=== PATIENT | female | born 1950 | race Hispanic/Latino ===

== ENCOUNTER 2018-07-20 19:02 | Inpatient (IN) | payer MEDICARE ==
[2018-07-20] MEDS ORDERED: ATROVENT IH ONE (19:47)
[2018-07-20] MEDS ORDERED: PROVENTIL IH ONE (19:47)
[2018-07-20] MEDS ORDERED: SOLU-Medrol IV ONE (19:47)
--- NOTE | 2018-07-20 19:51 | Emergency Department Report ---
HPI - General Chief Complaint: Dyspnea/Respdistress Time Seen by Provider: 07/20/18 19:38 - HPI HPI: Room 6 The patient is a 67-year-old female presenting with chief complaint of shortness of breath. Patient has a worsening shortness of breath since yesterday. Patient admits to a cough that has been productive. Last week the patient was diagnosed with "double pneumonia" per family member. The patient has been in contact with another family member was diagnosed with influenza. Patient denies pain of any type. Patient is on 3.5 L O2 at home and in the ED is satting approximately 92% on 100% nonrebreather Location: Lungs Duration: [See above] Quality: Shortness of breath Severity: Moderate Modifying factors: [see above] Context: [see above] Mode of transportation: [not driving] ED Past Medical Hx - Past Medical History Hx COPD: Yes (3.5 L nasal cannula home O2) - Surgical History Past Surgical History?: No - Family History Family history: no significant - Social History Smoking Status: Current Every Day Smoker ED Review of Systems ROS: Stated complaint: ALLAN Other details as noted in HPI Eyes: denies: eye pain ENT: denies: throat pain Respiratory: cough, shortness of breath Cardiovascular: denies: chest pain Endocrine: no symptoms reported Gastrointestinal: denies: abdominal pain Genitourinary: denies: dysuria Musculoskeletal: denies: back pain Neurological: denies: headache Physical Exam - Physical Exam Physical Exam: GENERAL: The patient is well-developed well-nourished female lying on stretcher appearing lethargic. [] HEENT: Normocephalic. Atraumatic. Extraocular motions are intact. Patient has moist mucous membranes. NECK: Supple. Trachea midline CHEST/LUNGS: Rhonchi bilaterally. Diminished breath sound. There is no respiratory distress noted. HEART/CARDIOVASCULAR: Regular. There is no tachycardia. There is no gallop rub or murmur. ABDOMEN: Abdomen is soft, nontender. Patient has normal bowel sounds. There is no abdominal distention. SKIN: There is no rash. There is no diaphoresis. NEURO: The patient is awake, alert, and oriented. The patient is cooperative. The patient has normal speech MUSCULOSKELETAL: There is no evidence of acute injury. ED Medical Decision Making - Lab Data Result diagrams: 07/20/18 20:13 - Radiology Data Radiology results: report reviewed (chest x-ray), image reviewed (chest x-ray) interpreted by me: Chest x-ray-right lower lobe pneumonia Findings [facility] [address] [place] [address] XRay Report Signed Patient: BARTOLO SOMMER MR#: [id number] : 1950 Acct:[id number] Age/Sex: 67 / F ADM Date: 07/20/18 Loc: ED Attending Dr: Ordering Physician: ALICIA VANEGAS MD Date of Service: 07/20/18 Procedure(s): XR chest 1V ap Accession Number(s): [id number] cc: ALICIA VANEGAS MD Fluoro Time In Minutes: FINAL REPORT PROCEDURE: XR CHEST 1V AP TECHNIQUE: Chest radiograph anteroposterior view. CPT 01301 HISTORY: Shortness of breath COMPARISON: No p rior studies are available for comparison. FINDINGS: Heart: Cardiac size is upper limit of normal. Mediastinum/Vessels: Normal. Lungs/Pleural space: Lungs are hyperinflated. There is diffuse prominence of interstitial markings. Irregular areas of consolidation are noted in the right lower lung. There is mild blunting of right costophrenic angle. Left pleural space is clear.. Bony thorax: No acute osseous abnormality. Life support devices: None. IMPRESSION: COPD Areas of consolidation in the right lower lung most likely represent pneumonia. Diffuse prominence of interstitial markings may represent interstitial fibrosis and/or interstitial edema. A two view chest study is recommended whenever the patient's condition permits.. Transcribed By: [facility] [place] Dictated By: JYOTSNA PIKE Electronically Authenticated By: JYOTNSA PIKE Signed Date/Time: 07/20/182012 DD/ 13 TD/ TT: 07/20/182013 - Differential Diagnosis pneumonia, influenza, COPD exacerbation Critical care attestation.: If time is entered above; I have spent that time in minutes in the direct care of this critically ill patient, excluding procedure time. ED Disposition Clinical Impression: Shortness of breath, Pneumonia, Leukocytosis, COPD exacerbation Disposition: -09 OP ADMIT IP TO THIS HOSP Is pt being admited?: Yes Does the pt Need Aspirin: No Condition: Fair Instructions: Bacterial Pneumonia (ED), Chronic Obstructive Pulmonary Disease (ED) Time of Disposition: 21:18 (hospitalist paged (Dr. Emily Lugo))
[2018-07-20] MEDS ORDERED: MAGNESIUM SULFATE 2GM/50ML 2 GM/50 ML BAG IV ONE (20:00)
--- NOTE | 2018-07-20 20:13 | XRay Report ---
FINAL REPORT PROCEDURE: XR CHEST 1V AP TECHNIQUE: Chest radiograph anteroposterior view. CPT 29287 HISTORY: Shortness of breath COMPARISON: No prior studies are available for comparison. FINDINGS: Heart: Cardiac size is upper limit of normal. Mediastinum/Vessels: Normal. Lungs/Pleural space: Lungs are hyperinflated. There is diffuse prominence of interstitial markings. I rregular areas of consolidation are noted in the right lower lung. There is mild blunting of right co stophrenic angle. Left pleural space is clear.. Bony thorax: No acute osseous abnormality. Life support devices: None. IMPRESSION: COPD Areas of consolidation in the right lower lung most likely represent pneumonia. Diffuse prominence of interstitial markings may represent interstitial fibrosis and/or interstitial e renate. A two view chest study is recommended whenever the patient's condition permits..
[2018-07-20 20:55] LABS: Hematocrit 46.1 % (30.3-42.9); Hemolysis Index 2; Mean Corpuscular HGB Conc 33 % (30-34); Mean Corpuscular Volume 97 fl (79-97); Platelet Count 154 K/mm3 (140-440); Red Blood Count 4.77 M/mm3 (3.65-5.03); Red Cell Distribution Width 13.5 % (13.2-15.2)
[2018-07-20 21:30] LABS: Band Neutrophils # (Manual) 3.9 K/mm3; Basophils % (Manual) 0 % (0.0-1.8); Eosinophils % (Manual) 0 % (0.0-4.3); Platelet Estimate Consistent w Auto; RBC Morphology Normal; Total Cells Counted 100
[2018-07-20 21:43] LABS: BUN/Creatinine Ratio 60; Blood Urea Nitrogen 18 mg/dL (7-17)
[2018-07-20 21:48] LABS: Calcium 2.8 mg/dL (8.4-10.2)
[2018-07-20] MEDS ORDERED: VANCOMYCIN 1,250 MG in NACL 0.9% 500 ML 500 ML IV ONE (22:00)
[2018-07-20] MEDS: MAXIPIME/NS 2 GM/100 ML 2 GM/100 ML BAG IV SCH (22:00)
--- NOTE | 2018-07-20 23:51 | History and Physical Report ---
History of Present Illness Date of examination: 07/20/18 History of present illness: 67-year-old woman with a history of COPD was brought by her family because she has increased shortness of breath, not relieved with nebulizer treatment. Grandson at bedside state that she was hospitalized recently for possible pneumonia. She is sleeping a lot at home. Review of systems difficult to obtain PAST MEDICAL HISTORY: COPD PAST SURGICAL HISTORY: None SOCIAL HISTORY: Denies alcohol, drugs, smoke 1 pack a week FAMILY HISTORY: Hypertension Medications and Allergies Allergies Allergy/AdvReac Type Severity Reaction Status Date / Time Unable to Assess Allergy Unverified 07/20/18 19:34 Home Medications Medication Instructions Recorded Confirmed Last Taken Type No Known Home Medications [No 07/21/18 07/21/18 Unknown History Reported Home Medications] Active Meds: Active Medications Cefepime HCl (Maxipime/Ns 2 Gm/100 Ml) 2 gm in 100 mls @ 200 mls/hr IV Q8HR TRENT; Protocol Last Admin: 07/20/18 22:00 Dose: 200 mls/hr Documented by: Exam - Physical Exam Narrative exam: General Apperance: The patient lying in bed, breathing comfortable HEENT: Normocephalic, atraumatic. Pupils equally round and reactive to light, EOMI, no sclericterus or JVD or thyromegaly or nodule. , no carotid bruit, mucous membranes moist, no exudate or erythema Heart: S1-S2, regular is rhythm Lungs: Wheezing bilaterally, breathing comfortable Abdomen: Positive bowel sounds, soft, nontender, nondistended, no organomegaly Extremities: No edema cyanosis clubbing Skin: no rash, nodule, warm and dry Neuro: Difficult to assess - Constitutional Vitals: Temp Pulse Resp BP Pulse Ox 98.3 F 104 H 25 H 104/49 98 07/20/18 19:57 07/20/18 22:46 07/20/18 22:46 07/20/18 22:46 07/20/18 22:46 Results - Labs CBC & Chem 7: 07/21/18 04:23 07/21/18 04:23 Labs: Abnormal lab results 07/20/18 07/20/18 07/20/18 Range/Units 20:13 20:13 21:22 WBC 20.7 H (4.5-11.0) K/mm3 Hgb 15.0 H (10.1-14.3) gm/dl Hct 46.1 H (30.3-42.9) % Seg Neuts % (Manual) 74.0 H (40.0-70.0) % Lymphocytes % (Manual) 3.0 L (13.4-35.0) % Seg Neutrophils # Man 15.3 H (1.8-7.7) K/mm3 Lymphocytes # (Manual) 0.6 L (1.2-5.4) K/mm3 POC ABG pH 7.310 L (7.35-7.45) POC ABG pCO2 95.4 H (35-45) POC ABG pO2 59 L (80-105) Potassium 5.5 H (3.6-5.0) mmol/L Chloride 87.2 L (98-107) mmol/L Carbon Dioxide 38 H (22-30) mmol/L BUN 18 H (7-17) mg/dL Creatinine < 0.2 L (0.7-1.2) mg/dL Glucose 115 H (65-100) mg/dL Calcium 2.8 L* (8.4-10.2) mg/dL 07/20/18 Range/Units 22:30 WBC (4.5-11.0) K/mm3 Hgb (10.1-14.3) gm/dl Hct (30.3-42.9) % Seg Neuts % (Manual) (40.0-70.0) % Lymphocytes % (Manual) (13.4-35.0) % Seg Neutrophils # Man (1.8-7.7) K/mm3 Lymphocytes # (Manual) (1.2-5.4) K/mm3 POC ABG pH (7.35-7.45) POC ABG pCO2 82.9 H (35-45) POC ABG pO2 76 L (80-105) Potassium (3.6-5.0) mmol/L Chloride (98-107) mmol/L Carbon Dioxide (22-30) mmol/L BUN (7-17) mg/dL Creatinine (0.7-1.2) mg/dL Glucose (65-100) mg/dL Calcium (8.4-10.2) mg/dL Assessment and Plan Assessment Respiratory Failure, acute COPD exacerbation Pneumonia, community-acquired Plan Admit to medicine Continue BiPAP, start high-dose steroids, breathing treatments Start IV Zosyn, consult pulmonary, monitor ABG DVT prophylaxis
[2018-07-21] MEDS ORDERED: ZOFRAN IV PRN (03:48)
[2018-07-21] MEDS ORDERED: SODIUM CHLORIDE FLUSH SYRINGE 10 ML IV PRN (03:48)
[2018-07-21] MEDS ORDERED: TYLENOL PO PRN (03:48)
[2018-07-21] MEDS ORDERED: SOLU-Medrol IV SCH (03:50)
[2018-07-21] MEDS: DUONEB *Not for PRN Use IH SCH ×4 (04:08→20:17)
[2018-07-21] MEDS ORDERED: SOLU-Medrol ONE (04:47)
[2018-07-21 04:51] LABS: Hematocrit 41.2 % (30.3-42.9); Hemoglobin 13.3 gm/dl (10.1-14.3); Mean Corpuscular HGB Conc 32 % (30-34); Mean Corpuscular Volume 96 fl (79-97); Platelet Count 171 K/mm3 (140-440); Red Cell Distribution Width 14.1 % (13.2-15.2)
[2018-07-21 05:08] LABS: BUN/Creatinine Ratio 58; Blood Urea Nitrogen 23 mg/dL (7-17); Hemolysis Index 20
[2018-07-21] MEDS ORDERED: ZOSYN/NS 3.375GM/50ML 3.375 GM/50 ML BAG IV SCH (06:00)
[2018-07-21 06:14] LABS: Calcium 8.6 mg/dL (8.4-10.2)
[2018-07-21 06:27] LABS: Band Neutrophils # (Manual) 1.2 K/mm3; Basophils % (Manual) 0 % (0.0-1.8); Eosinophils % (Manual) 0 % (0.0-4.3); Total Cells Counted 100
[2018-07-21 06:29] LABS: Anisocytosis 1+; Platelet Estimate Cons
[2018-07-21] MEDS: MAXIPIME/NS 2 GM/100 ML 2 GM/100 ML BAG IV SCH (06:32)
[2018-07-21] MEDS ORDERED: LOVENOX SUB-Q SCH (10:00)
[2018-07-21] MEDS: LOVENOX SUB-Q SCH (10:03)
[2018-07-21] MEDS: SODIUM CHLORIDE FLUSH SYRINGE 10 ML IV SCH ×2 (10:03→22:45)
--- NOTE | 2018-07-21 13:45 | Progress Note ---
Assessment and Plan Assessment and plan: COPD exacerbation, CO2 narcosis, acute on chronic respiratory failure - Patient was admitted to the floor on IV Solu-Medrol, IV antibiotic, nebulizer, DuoNeb's - Patient CO2 was 76 now 71 - Pulmonary consulted Right lower lobe pneumonia - Continue antibiotic DVT prophylaxis - Lovenox Disposition - Continue inpatient care History Interval history: Patient was seen and evaluated this morning, patient was alert and oriented, she was on BiPAP. Hospitalist Physical - Physical exam Narrative exam: Patient was on BiPAP The patient appeared well nourished and normally developed. Vital signs as documented. Head exam is unremarkable. No scleral icterus . Neck is without jugular venous distension, thyromegaly, or carotid bruits. Lungs decreased air entry on the bibasilar area, scattered wheezes. Cardiac exam reveals regular rate and Rhythm. Abdominal exam reveals normal bowel sounds. Extremities are nonedematous and both femoral and pedal pulses are normal. 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 No focal weakness. - Constitutional Vitals: Temp Pulse Resp BP Pulse Ox 98.3 F 103 H 24 98/56 95 07/21/18 05:55 07/21/18 08:03 07/21/18 08:03 07/21/18 08:03 07/21/18 12:19 Results - Labs CBC & Chem 7: 07/21/18 04:23 07/21/18 04:23 Labs: Laboratory Last Values WBC 19.2 K/mm3 (4.5-11.0) H 07/21/18 04:23 RBC 4.30 M/mm3 (3.65-5.03) 07/21/18 04:23 Hgb 13.3 gm/dl (10.1-14.3) 07/21/18 04:23 Hct 41.2 % (30.3-42.9) 07/21/18 04:23 MCV 96 fl (79-97) 07/21/18 04:23 MCH 31 pg (28-32) 07/21/18 04:23 MCHC 32 % (30-34) 07/21/18 04:23 RDW 14.1 % (13.2-15.2) 07/21/18 04:23 Plt Count 171 K/mm3 (140-440) 07/21/18 04:23 Add Manual Diff Complete 07/21/18 04:23 Total Counted 100 01/04/19 04:23 Seg Neutrophils % Car Body Inspector 07/21/18 04:23 Seg Neuts % (Manual) 86.0 % (40.0-70.0) H 07/21/18 04:23 Band Neutrophils % 6.0 % 07/21/18 04:23 Lymphocytes % (Manual) 6.0 % (13.4-35.0) L 07/21/18 04:23 Reactive Lymphs % (Man) 0 % 07/21/18 04:23 Monocytes % (Manual) 2.0 % (0.0-7.3) 07/21/18 04:23 Eosinophils % (Manual) 0 % (0.0-4.3) 07/21/18 04:23 Basophils % (Manual) 0 % (0.0-1.8) 07/21/18 04:23 Metamyelocytes % 0 % 07/21/18 04:23 Myelocytes % 0 % 07/21/18 04:23 Promyelocytes % 0 % 07/21/18 04:23 Blast Cells % 0 % 07/21/18 04:23 Nucleated RBC % Not Reportable 07/21/18 04:23 Seg Neutrophils # Man 16.5 K/mm3 (1.8-7.7) H 07/21/18 04:23 Band Neutrophils # 1.2 K/mm3 07/21/18 04:23 Lymphocytes # (Manual) 1.2 K/mm3 (1.2-5.4) 07/21/18 04:23 Abs React Lymphs (Man) 0.0 K/mm3 07/21/18 04:23 Monocytes # (Manual) 0.4 K/mm3 (0.0-0.8) 07/21/18 04:23 Eosinophils # (Manual) 0.0 K/mm3 (0.0-0.4) 07/21/18 04:23 Basophils # (Manual) 0.0 K/mm3 (0.0-0.1) 07/21/18 04:23 Metamyelocytes # 0.0 K/mm3 07/21/18 04:23 Myelocytes # 0.0 K/mm3 07/21/18 04:23 Promyelocytes # 0.0 K/mm3 07/21/18 04:23 Blast Cells # 0.0 K/mm3 07/21/18 04:23 WBC Morphology Not Reportable 07/21/18 04:23 Hypersegmented Neuts Not Reportable 07/21/18 04:23 Hyposegmented Neuts Not Reportable 07/21/18 04:23 Hypogranular Neuts Not Reportable 07/21/18 04:23 Smudge Cells Not Reportable 07/21/18 04:23 Toxic Granulation Not Reportable 07/21/18 04:23 Toxic Vacuolation Not Reportable 07/21/18 04:23 Dohle Bodies Not Reportable 07/21/18 04:23 Pelger-Huet Anomaly Not Reportable 07/21/18 04:23 Irasema Rods Not Reportable 07/21/18 04:23 Platelet Estimate Cons 07/21/18 04:23 Clumped Platelets Not Reportable 07/21/18 04:23 Plt Clumps, EDTA Not Reportable 07/21/18 04:23 Large Platelets Not Reportable 07/21/18 04:23 Giant Platelets Not Reportable 07/21/18 04:23 Platelet Satelliting Not Reportable 07/21/18 04:23 Plt Morphology Comment Not Reportable 07/21/18 04:23 RBC Morphology Not Reportable 07/21/18 04:23 Dimorphic RBCs Not Reportable 07/21/18 04:23 Polychromasia Not Reportable 07/21/18 04:23 Hypochromasia Not Reportable 07/21/18 04:23 Poikilocytosis Not Reportable 07/21/18 04:23 Anisocytosis 1+ 07/21/18 04:23 Microcytosis Not Reportable 07/21/18 04:23 Macrocytosis Not Reportable 07/21/18 04:23 Spherocytes Not Reportable 07/21/18 04:23 Pappenheimer Bodies Not Reportable 07/21/18 04:23 Sickle Cells Not Reportable 07/21/18 04:23 Target Cells Not Reportable 07/21/18 04:23 Tear Drop Cells Not Reportable 07/21/18 04:23 Ovalocytes Not Reportable 07/21/18 04:23 Helmet Cells Not Reportable 07/21/18 04:23 [place] Bodies Not Reportable 07/21/18 04:23 [place] Rings Not Reportable 07/21/18 04:23 Neda Cells Not Reportable 07/21/18 04:23 Bite Cells Not Reportable 07/21/18 04:23 Crenated Cell Not Reportable 07/21/18 04:23 Elliptocytes Not Reportable 07/21/18 04:23 Acanthocytes (Spur) Not Reportable 07/21/18 04:23 Rouleaux Not Reportable 07/21/18 04:23 Hemoglobin C Crystals Not Reportable 07/21/18 04:23 Schistocytes Not Reportable 07/21/18 04:23 Malaria parasites Not Reportable 07/21/18 04:23 Gui Bodies Not Reportable 07/21/18 04:23 Hem Pathologist Commnt No 07/21/18 04:23 POC ABG pH 7.350 (7.35-7.45) 07/21/18 07:46 POC ABG pCO2 78.9 (35-45) H 07/21/18 07:46 POC ABG pO2 71 (80-105) L 07/21/18 07:46 POC ABG HCO3 43.6 07/21/18 07:46 POC ABG Total CO2 46 07/21/18 07:46 POC ABG O2 Sat 92 07/21/18 07:46 POC ABG Base Excess 18 07/21/18 07:46 FiO2 50 % 07/21/18 07:46 Sodium 141 mmol/L (137-145) 07/21/18 04:23 Potassium 4.6 mmol/L (3.6-5.0) 07/21/18 04:23 Chloride 89.8 mmol/L (98-107) L 07/21/18 04:23 Carbon Dioxide 40 mmol/L (22-30) H 07/21/18 04:23 Anion Gap 14 mmol/L 07/21/18 04:23 BUN 23 mg/dL (7-17) H 07/21/18 04:23 Creatinine 0.4 mg/dL (0.7-1.2) L D 07/21/18 04:23 Estimated GFR > 60 ml/min 07/21/18 04:23 BUN/Creatinine Ratio 58 % 07/21/18 04:23 Glucose 118 mg/dL (65-100) H 07/21/18 04:23 Lactic Acid 1.20 mmol/L (0.7-2.0) 07/20/18 20:13 Calcium 8.6 mg/dL (8.4-10.2) D 07/21/18 04:23 Influenza A (Rapid) Negative (Negative) 07/20/18 20:30 Influenza B (Rapid) Negative (Negative) 07/20/18 20:30
[2018-07-21] MEDS: BROVANA NEBU IH SCH ×2 (14:05→20:17)
[2018-07-21] MEDS: PULMICORT IH SCH ×2 (14:05→20:17)
--- NOTE | 2018-07-21 14:19 | Consultation ---
History of Present Illness Consult date: 07/21/18 Requesting physician: MAGDA BOATENG Reason for consult: COPD, hypoxemia History of present illness: 67 y/o female admitted for COPD exacerbation. Medications and Allergies Allergies Allergy/AdvReac Type Severity Reaction Status Date / Time Penicillins Allergy Swelling Verified 08/04/18 21:42 mushroom AdvReac Anaphylaxis Verified 07/22/18 06:21 Home Medications Medication Instructions Recorded Confirmed Last Taken Type Arformoterol Nebu [Brovana Nebu] 15 mcg IH Q12HRT #60 ml 07/23/18 Unknown Rx Budesonide [Pulmicort Respules] 0.5 mg IH Q12HRT #30 nebu 07/23/18 Unknown Rx Ipratropium/Albuterol Sulfate 1 ampul IH Q6HRT #30 ampul.neb 07/23/18 Unknown Rx [DUONEB *Not for PRN Use*] Prednisone [predniSONE 10 mg 10 mg PO .TAPER #1 tab.ds.pk 07/23/18 Unknown Rx (6-Day Pack, 21 Tabs)] cephALEXin [Keflex] 500 mg PO Q8HR #15 cap 07/23/18 Unknown Rx ALBUTEROL Inhaler (OR & NICU) 1 puff IH Q6H #1 inha 08/04/18 Unknown Rx [ProAir HFA Inhaler] ALBUTEROL NEB's [Proventil 0.083% 2.5 mg IH TID PRN #1 neb 08/04/18 Unknown Rx NEBS] Diclofenac Sodium [Voltaren] 100 gm TP Q6H #1 gel..gram. 08/04/18 Unknown Rx predniSONE [Deltasone] 20 mg PO BID #10 tab 08/04/18 Unknown Rx Active Meds: Active Medications Acetaminophen (Tylenol) 650 mg PO Q4H PRN PRN Reason: Pain MILD(1-3)/Fever >100.5/FOX Albuterol/Ipratropium (Duoneb *Not For Prn Use*) 1 ampul IH Q6HRT ON LICENSE OF [facility] Last Admin: 07/21/18 14:05 Dose: 1 ampul Documented by: Arformoterol Tartrate (Brovana Nebu) 15 mcg IH Q12HRT ON LICENSE OF [facility] Last Admin: 07/21/18 14:05 Dose: 15 mcg Documented by: Budesonide (Pulmicort) 0.5 mg IH Q12HRT ON LICENSE OF [facility] Last Admin: 07/21/18 14:05 Dose: 0.5 mg Documented by: Enoxaparin Sodium (Lovenox) 40 mg SUB-Q QDAY@1000 ON LICENSE OF [facility] Last Admin: 07/21/18 10:03 Dose: 40 mg Documented by: Piperacillin Sod/Tazobactam Sod (Zosyn/Ns 4.5gm/100ml) 4.5 gm in 100 mls @ 200 mls/hr IV Q8HR ON LICENSE OF [facility] Methylprednisolone Sodium Succinate (Solu-Medrol) 60 mg IV Q6HR ON LICENSE OF [facility] Ondansetron HCl (Zofran) 4 mg IV Q8H PRN PRN Reason: Nausea And Vomiting Sodium Chloride (Sodium Chloride Flush Syringe 10 Ml) 10 ml IV BID ON LICENSE OF [facility] Last Admin: 07/21/18 10:03 Dose: 10 ml Documented by: Sodium Chloride (Sodium Chloride Flush Syringe 10 Ml) 10 ml IV PRN PRN PRN Reason: LINE FLUSH Physical Examination Vital signs: Vital Signs Pulse Resp Pulse Ox 112 H 26 H 87 07/20/18 19:54 07/20/18 19:54 07/20/18 19:54 Results - Laboratory Findings CBC and BMP: 07/22/18 04:19 07/22/18 16:27 ABG POC ABG pH 7.350 (7.35-7.45) 07/21/18 07:46 POC ABG pCO2 78.9 (35-45) H 07/21/18 07:46 POC ABG pO2 71 (80-105) L 07/21/18 07:46 POC ABG HCO3 43.6 07/21/18 07:46 POC ABG Total CO2 46 07/21/18 07:46 POC ABG O2 Sat 92 07/21/18 07:46 Abnormal lab findings: Abnormal Labs 07/20/18 07/20/18 07/20/18 20:13 20:13 21:22 WBC 20.7 H Hgb 15.0 H Hct 46.1 H Seg Neuts % (Manual) 74.0 H Lymphocytes % (Manual) 3.0 L Seg Neutrophils # Man 15.3 H Lymphocytes # (Manual) 0.6 L POC ABG pH 7.310 L POC ABG pCO2 95.4 H POC ABG pO2 59 L Potassium 5.5 H Chloride 87.2 L Carbon Dioxide 38 H BUN 18 H Creatinine < 0.2 L Glucose 115 H Calcium 2.8 L* 07/20/18 07/21/18 07/21/18 22:30 04:23 04:23 WBC 19.2 H Hgb Hct Seg Neuts % (Manual) 86.0 H Lymphocytes % (Manual) 6.0 L Seg Neutrophils # Man 16.5 H Lymphocytes # (Manual) POC ABG pH POC ABG pCO2 82.9 H POC ABG pO2 76 L Potassium Chloride 89.8 L Carbon Dioxide 40 H BUN 23 H Creatinine 0.4 L D Glucose 118 H Calcium 07/21/18 07:46 WBC Hgb Hct Seg Neuts % (Manual) Lymphocytes % (Manual) Seg Neutrophils # Man Lymphocytes # (Manual) POC ABG pH POC ABG pCO2 78.9 H POC ABG pO2 71 L Potassium Chloride Carbon Dioxide BUN Creatinine Glucose Calcium Assessment and Plan 67 y/o female with copd exacerbation thought secondary to pneumonia. 1. Steroids. 2. Abx therapy 3. Supplemental O2 4. Repeat ABG CCT 31 minutes
[2018-07-21] MEDS: SOLU-Medrol IV SCH ×3 (14:59→23:10)
[2018-07-21] MEDS: ZOSYN/NS 4.5GM/100ML 4.5 GM/100 ML VIAL IV SCH ×2 (15:02→22:45)
[2018-07-22] MEDS: DUONEB *Not for PRN Use IH SCH ×4 (02:15→21:10)
[2018-07-22 05:07] LABS: Hematocrit 36.8 % (30.3-42.9); Mean Corpuscular HGB Conc 33 % (30-34); Mean Corpuscular Volume 96 fl (79-97); Platelet Count 173 K/mm3 (140-440); Red Blood Count 3.84 M/mm3 (3.65-5.03)
[2018-07-22] MEDS: ZOSYN/NS 4.5GM/100ML 4.5 GM/100 ML VIAL IV SCH ×3 (05:15→21:48)
[2018-07-22] MEDS: SOLU-Medrol IV SCH ×4 (05:16→23:55)
[2018-07-22 05:21] LABS: BUN/Creatinine Ratio 63; Blood Urea Nitrogen 25 mg/dL (7-17); Calcium 8.7 mg/dL (8.4-10.2); Hemolysis Index 13
[2018-07-22 06:08] LABS: Basophils % (Manual) 0 % (0.0-1.8); Eosinophils % (Manual) 0 % (0.0-4.3); Monocytes % (Manual) 0 % (0.0-7.3); Total Cells Counted 100
[2018-07-22 06:09] LABS: Anisocytosis 1+; Platelet Estimate Consistent w Auto
[2018-07-22] MEDS: BROVANA NEBU IH SCH ×2 (08:00→21:07)
[2018-07-22] MEDS: PULMICORT IH SCH ×2 (08:00→21:07)
[2018-07-22] MEDS: LOVENOX SUB-Q SCH (09:15)
[2018-07-22] MEDS: SODIUM CHLORIDE FLUSH SYRINGE 10 ML IV SCH ×2 (09:15→21:48)
--- NOTE | 2018-07-22 14:50 | Progress Note ---
Assessment and Plan 67 y/o female with copd exacerbation thought secondary to pneumonia. 1. Continue High dose steroids 2. Abx per primary team 3. Continue pulmicort and brovana 4. Would transfer to floor, continue night time bipap therapy. If patient not on PPV at night at home, should qualify for trilogy from hospital prior to discharge. Subjective Date of service: 07/22/18 Interval history: No acute events. Wore bipap therapy last night on nasal cannula now. Stable. Mild tachycardia. Objective Vital Signs - 12hr 07/22/18 07/22/18 07/22/18 03:00 03:20 03:40 Temperature Pulse Rate 86 90 82 Pulse Rate [ Anterior Bilateral Throughout] Pulse Rate [ Bilateral Throughout] Pulse Rate [ From Monitor] Respiratory 17 16 24 Rate Respiratory Rate [Anterior Bilateral Throughout] Respiratory Rate [Bilateral Throughout] Blood Pressure 100/54 101/53 100/54 O2 Sat by Pulse 96 98 96 Oximetry 07/22/18 07/22/18 07/22/18 04:00 04:20 04:40 Temperature 98.5 F Pulse Rate 82 82 78 Pulse Rate [ Anterior Bilateral Throughout] Pulse Rate [ Bilateral Throughout] Pulse Rate [ 79 From Monitor] Respiratory 24 24 18 Rate Respiratory Rate [Anterior Bilateral Throughout] Respiratory Rate [Bilateral Throughout] Blood Pressure 86/42 90/47 90/47 O2 Sat by Pulse 96 95 96 Oximetry 07/22/18 07/22/18 07/22/18 05:00 05:20 05:40 Temperature Pulse Rate 86 80 88 Pulse Rate [ Anterior Bilateral Throughout] Pulse Rate [ Bilateral Throughout] Pulse Rate [ From Monitor] Respiratory 20 16 20 Rate Respiratory Rate [Anterior Bilateral Throughout] Respiratory Rate [Bilateral Throughout] Blood Pressure 98/52 90/47 90/47 O2 Sat by Pulse 98 99 95 Oximetry 07/22/18 07/22/18 07/22/18 06:00 06:20 06:40 Temperature Pulse Rate 91 H 93 H 98 H Pulse Rate [ Anterior Bilateral Throughout] Pulse Rate [ Bilateral Throughout] Pulse Rate [ From Monitor] Respiratory 24 18 16 Rate Respiratory Rate [Anterior Bilateral Throughout] Respiratory Rate [Bilateral Throughout] Blood Pressure 103/55 103/55 103/55 O2 Sat by Pulse 96 94 90 Oximetry 07/22/18 07/22/18 07/22/18 07:00 07:20 07:40 Temperature Pulse Rate 97 H 95 H 92 H Pulse Rate [ Anterior Bilateral Throughout] Pulse Rate [ Bilateral Throughout] Pulse Rate [ From Monitor] Respiratory 21 18 24 Rate Respiratory Rate [Anterior Bilateral Throughout] Respiratory Rate [Bilateral Throughout] Blood Pressure 101/55 101/55 101/55 O2 Sat by Pulse 93 94 94 Oximetry 07/22/18 07/22/18 07/22/18 08:00 08:10 08:20 Temperature 97.6 F Pulse Rate 93 H 92 H Pulse Rate [ Anterior Bilateral Throughout] Pulse Rate [ 97 H 97 H Bilateral Throughout] Pulse Rate [ 79 From Monitor] Respiratory 21 18 Rate Respiratory Rate [Anterior Bilateral Throughout] Respiratory 18 18 Rate [Bilateral Throughout] Blood Pressure 108/63 108/63 O2 Sat by Pulse 96 98 Oximetry 07/22/18 07/22/18 07/22/18 08:28 08:43 09:00 Temperature Pulse Rate 100 H 109 H Pulse Rate [ Anterior Bilateral Throughout] Pulse Rate [ Bilateral Throughout] Pulse Rate [ From Monitor] Respiratory 15 Rate Respiratory Rate [Anterior Bilateral Throughout] Respiratory Rate [Bilateral Throughout] Blood Pressure 108/63 114/63 O2 Sat by Pulse 97 89 84 Oximetry 07/22/18 07/22/18 07/22/18 09:20 09:42 10:00 Temperature Pulse Rate 105 H 105 H 102 H Pulse Rate [ Anterior Bilateral Throughout] Pulse Rate [ Bilateral Throughout] Pulse Rate [ From Monitor] Respiratory 19 29 H 25 H Rate Respiratory Rate [Anterior Bilateral Throughout] Respiratory Rate [Bilateral Throughout] Blood Pressure 108/63 108/63 114/63 O2 Sat by Pulse 92 85 91 Oximetry 07/22/18 07/22/18 07/22/18 10:20 10:40 11:00 Temperature Pulse Rate 106 H 105 H 104 H Pulse Rate [ Anterior Bilateral Throughout] Pulse Rate [ Bilateral Throughout] Pulse Rate [ From Monitor] Respiratory 23 27 H 20 Rate Respiratory Rate [Anterior Bilateral Throughout] Respiratory Rate [Bilateral Throughout] Blood Pressure 114/63 114/63 105/54 O2 Sat by Pulse 90 89 89 Oximetry 07/22/18 07/22/18 07/22/18 11:20 11:40 12:00 Temperature 98.4 F Pulse Rate 96 H 100 H 102 H Pulse Rate [ Anterior Bilateral Throughout] Pulse Rate [ Bilateral Throughout] Pulse Rate [ 79 From Monitor] Respiratory 26 H 27 H 21 Rate Respiratory Rate [Anterior Bilateral Throughout] Respiratory Rate [Bilateral Throughout] Blood Pressure 96/51 96/51 106/57 O2 Sat by Pulse 90 93 91 Oximetry 07/22/18 07/22/18 07/22/18 12:20 13:23 13:33 Temperature Pulse Rate 103 H Pulse Rate [ 104 H 103 H Anterior Bilateral Throughout] Pulse Rate [ Bilateral Throughout] Pulse Rate [ From Monitor] Respiratory 30 H Rate Respiratory 18 20 Rate [Anterior Bilateral Throughout] Respiratory Rate [Bilateral Throughout] Blood Pressure 106/57 O2 Sat by Pulse 90 Oximetry Constitutional: no acute distress, alert Eyes: non-icteric Ascultation: Bilateral: diminished breath sounds, wheezes CBC and BMP: 07/22/18 04:19 07/22/18 04:19 ABG, PT/INR, D-dimer: ABG POC ABG pH 7.350 (7.35-7.45) 07/21/18 07:46 POC ABG pCO2 78.9 (35-45) H 07/21/18 07:46 POC ABG pO2 71 (80-105) L 07/21/18 07:46 POC ABG HCO3 43.6 07/21/18 07:46 POC ABG Total CO2 46 07/21/18 07:46 POC ABG O2 Sat 92 07/21/18 07:46 Abnormal lab findings: Abnormal Labs 07/20/18 07/20/18 07/20/18 20:13 20:13 21:22 WBC 20.7 H Hgb 15.0 H Hct 46.1 H Seg Neuts % (Manual) 74.0 H Lymphocytes % (Manual) 3.0 L Seg Neutrophils # Man 15.3 H Lymphocytes # (Manual) 0.6 L POC ABG pH 7.310 L POC ABG pCO2 95.4 H POC ABG pO2 59 L Potassium 5.5 H Chloride 87.2 L Carbon Dioxide 38 H BUN 18 H Creatinine < 0.2 L Glucose 115 H Calcium 2.8 L* 07/20/18 07/21/18 07/21/18 22:30 04:23 04:23 WBC 19.2 H Hgb Hct Seg Neuts % (Manual) 86.0 H Lymphocytes % (Manual) 6.0 L Seg Neutrophils # Man 16.5 H Lymphocytes # (Manual) POC ABG pH POC ABG pCO2 82.9 H POC ABG pO2 76 L Potassium Chloride 89.8 L Carbon Dioxide 40 H BUN 23 H Creatinine 0.4 L D Glucose 118 H Calcium 07/21/18 07/22/18 07/22/18 07:46 04:19 04:19 WBC 11.1 H Hgb Hct Seg Neuts % (Manual) 88.0 H Lymphocytes % (Manual) 3.0 L Seg Neutrophils # Man 9.8 H Lymphocytes # (Manual) 0.3 L POC ABG pH POC ABG pCO2 78.9 H POC ABG pO2 71 L Potassium Chloride 91.5 L Carbon Dioxide 44 H* BUN 25 H Creatinine 0.4 L Glucose 147 H Calcium
--- NOTE | 2018-07-22 15:33 | Progress Note ---
Assessment and Plan Assessment and plan: COPD exacerbation, CO2 narcosis, acute on chronic respiratory failure - Patient was admitted to the floor on IV Solu-Medrol, IV antibiotic, nebulizer, DuoNeb's - Patient CO2 was 76 now 71 - Pulmonary consulted and recommend triology machine at discharge if she doesn't have one Right lower lobe pneumonia - Continue antibiotic DVT prophylaxis - Lovenox Disposition - Continue inpatient care History Interval history: Patient was seen and evaluated this morning, patient was alert and oriented, she was on 5 litres of oxygen. Hospitalist Physical - Physical exam Narrative exam: Patient was on BiPAP The patient appeared well nourished and normally developed. Vital signs as documented. Head exam is unremarkable. No scleral icterus . Neck is without jugular venous distension, thyromegaly, or carotid bruits. Lungs decreased air entry on the bibasilar area, scattered wheezes. Cardiac exam reveals regular rate and Rhythm. Abdominal exam reveals normal bowel sounds. Extremities are nonedematous and both femoral and pedal pulses are normal. TRANSPORT MEDIC: Alert and oriented 3. No focal weakness. - Constitutional Vitals: Temp Pulse Resp BP Pulse Ox 98.4 F 103 H 20 106/57 90 07/22/18 12:00 07/22/18 13:33 07/22/18 13:33 07/22/18 12:20 07/22/18 12:20 Results - Labs CBC & Chem 7: 07/22/18 04:19 07/22/18 04:19 Labs: Laboratory Last Values WBC 11.1 K/mm3 (4.5-11.0) H 07/22/18 04:19 RBC 3.84 M/mm3 (3.65-5.03) 07/22/18 04:19 Hgb 12.0 gm/dl (10.1-14.3) 07/22/18 04:19 Hct 36.8 % (30.3-42.9) 07/22/18 04:19 MCV 96 fl (79-97) 07/22/18 04:19 MCH 31 pg (28-32) 07/22/18 04:19 MCHC 33 % (30-34) 07/22/18 04:19 RDW 14.0 % (13.2-15.2) 07/22/18 04:19 Plt Count 173 K/mm3 (140-440) 07/22/18 04:19 Add Manual Diff Complete 07/22/18 04:19 Total Counted 100 07/22/18 04:19 Seg Neutrophils % Media Production Manager 07/22/18 04:19 Seg Neuts % (Manual) 88.0 % (40.0-70.0) H 07/22/18 04:19 Band Neutrophils % 9.0 % 07/22/18 04:19 Lymphocytes % (Manual) 3.0 % (13.4-35.0) L 07/22/18 04:19 Reactive Lymphs % (Man) 0 % 07/22/18 04:19 Monocytes % (Manual) 0 % (0.0-7.3) 07/22/18 04:19 Eosinophils % (Manual) 0 % (0.0-4.3) 07/22/18 04:19 Basophils % (Manual) 0 % (0.0-1.8) 07/22/18 04:19 Metamyelocytes % 0 % 07/22/18 04:19 Myelocytes % 0 % 07/22/18 04:19 Promyelocytes % 0 % 07/22/18 04:19 Blast Cells % 0 % 07/22/18 04:19 Nucleated RBC % Not Reportable 07/22/18 04:19 Seg Neutrophils # Man 9.8 K/mm3 (1.8-7.7) H 07/22/18 04:19 Band Neutrophils # 1.0 K/mm3 07/22/18 04:19 Lymphocytes # (Manual) 0.3 K/mm3 (1.2-5.4) L 07/22/18 04:19 Abs React Lymphs (Man) 0.0 K/mm3 07/22/18 04:19 Monocytes # (Manual) 0.0 K/mm3 (0.0-0.8) 07/22/18 04:19 Eosinophils # (Manual) 0.0 K/mm3 (0.0-0.4) 07/22/18 04:19 Basophils # (Manual) 0.0 K/mm3 (0.0-0.1) 07/22/18 04:19 Metamyelocytes # 0.0 K/mm3 07/22/18 04:19 Myelocytes # 0.0 K/mm3 07/22/18 04:19 Promyelocytes # 0.0 K/mm3 07/22/18 04:19 Blast Cells # 0.0 K/mm3 07/22/18 04:19 WBC Morphology Not Reportable 07/22/18 04:19 Hypersegmented Neuts Not Reportable 07/22/18 04:19 Hyposegmented Neuts Not Reportable 07/22/18 04:19 Hypogranular Neuts Not Reportable 07/22/18 04:19 Smudge Cells Not Reportable 07/22/18 04:19 Toxic Granulation Not Reportable 07/22/18 04:19 Toxic Vacuolation Not Reportable 07/22/18 04:19 Dohle Bodies Not Reportable 07/22/18 04:19 Pelger-Huet Anomaly Not Reportable 07/22/18 04:19 Irasema Rods Not Reportable 07/22/18 04:19 Platelet Estimate Consistent w auto 07/22/18 04:19 Clumped Platelets Not Reportable 07/22/18 04:19 Plt Clumps, EDTA Not Reportable 07/22/18 04:19 Large Platelets Not Reportable 07/22/18 04:19 Giant Platelets Not Reportable 07/22/18 04:19 Platelet Satelliting Not Reportable 07/22/18 04:19 Plt Morphology Comment Not Reportable 07/22/18 04:19 RBC Morphology Not Reportable 07/22/18 04:19 Dimorphic RBCs Not Reportable 07/22/18 04:19 Polychromasia Not Reportable 07/22/18 04:19 Hypochromasia Not Reportable 07/22/18 04:19 Poikilocytosis Not Reportable 07/22/18 04:19 Anisocytosis 1+ 07/22/18 04:19 Microcytosis Not Reportable 07/22/18 04:19 Macrocytosis Not Reportable 07/22/18 04:19 Spherocytes Not Reportable 07/22/18 04:19 Pappenheimer Bodies Not Reportable 07/22/18 04:19 Sickle Cells Not Reportable 07/22/18 04:19 Target Cells Not Reportable 07/22/18 04:19 Tear Drop Cells Not Reportable 07/22/18 04:19 Ovalocytes Not Reportable 07/22/18 04:19 Helmet Cells Not Reportable 07/22/18 04:19 Guzmán-Burwell Bodies Not Reportable 07/22/18 04:19 Thicket Rings Not Reportable 07/22/18 04:19 Neda Cells Not Reportable 07/22/18 04:19 Bite Cells Not Reportable 07/22/18 04:19 Crenated Cell Not Reportable 07/22/18 04:19 Elliptocytes Not Reportable 07/22/18 04:19 Acanthocytes (Spur) Not Reportable 07/22/18 04:19 Rouleaux Not Reportable 07/22/18 04:19 Hemoglobin C Crystals Not Reportable 07/22/18 04:19 Schistocytes Not Reportable 07/22/18 04:19 Malaria parasites Not Reportable 07/22/18 04:19 Gui Bodies Not Reportable 07/22/18 04:19 Hem Pathologist Commnt No 07/22/18 04:19 POC ABG pH 7.350 (7.35-7.45) 07/21/18 07:46 POC ABG pCO2 78.9 (35-45) H 07/21/18 07:46 POC ABG pO2 71 (80-105) L 07/21/18 07:46 POC ABG HCO3 43.6 07/21/18 07:46 POC ABG Total CO2 46 07/21/18 07:46 POC ABG O2 Sat 92 07/21/18 07:46 POC ABG Base Excess 18 07/21/18 07:46 FiO2 50 % 07/21/18 07:46 Sodium 141 mmol/L (137-145) 07/22/18 04:19 Potassium 4.0 mmol/L (3.6-5.0) 07/22/18 04:19 Chloride 91.5 mmol/L (98-107) L 07/22/18 04:19 Carbon Dioxide 44 mmol/L (22-30) H* 07/22/18 04:19 Anion Gap 10 mmol/L 07/22/18 04:19 BUN 25 mg/dL (7-17) H 07/22/18 04:19 Creatinine 0.4 mg/dL (0.7-1.2) L 07/22/18 04:19 Estimated GFR > 60 ml/min 07/22/18 04:19 BUN/Creatinine Ratio 63 % 07/22/18 04:19 Glucose 147 mg/dL (65-100) H 07/22/18 04:19 Lactic Acid 1.20 mmol/L (0.7-2.0) 07/20/18 20:13 Calcium 8.7 mg/dL (8.4-10.2) 07/22/18 04:19 Influenza A (Rapid) Negative (Negative) 07/20/18 20:30 Influenza B (Rapid) Negative (Negative) 07/20/18 20:30
[2018-07-22 16:55] LABS: BUN/Creatinine Ratio 38; Blood Urea Nitrogen 19 mg/dL (7-17); Calcium 8.5 mg/dL (8.4-10.2); Hemolysis Index 19
[2018-07-23] MEDS: DUONEB *Not for PRN Use IH SCH ×3 (02:10→14:07)
[2018-07-23] MEDS: SOLU-Medrol IV SCH ×3 (05:40→17:45)
[2018-07-23] MEDS: ZOSYN/NS 4.5GM/100ML 4.5 GM/100 ML VIAL IV SCH ×2 (05:41→14:30)
[2018-07-23 06:23] VITALS: BP 104/58
[2018-07-23] MEDS: PULMICORT IH SCH (08:01)
[2018-07-23] MEDS: BROVANA NEBU IH SCH (09:48)
[2018-07-23] MEDS: LOVENOX SUB-Q SCH (10:45)
[2018-07-23] MEDS: SODIUM CHLORIDE FLUSH SYRINGE 10 ML IV SCH (10:56)
--- NOTE | 2018-07-23 10:59 | Discharge Summary ---
Providers - Providers Date of Admission: 07/20/18 23:51 Attending physician: MAGDA BOATENG MD 07/21/18 06:20 Consult to Physician [CONS] Routine Comment: Consulting Provider: ANALI MORGAN Physician Instructions: Reason For Exam: copd Primary care physician: ELECTRONIC FUNDS TRANSFER COORDINATOR Hospitalization Reason for admission: COPD exacerbation Condition: Stable Pertinent studies: CXR Areas of consolidation in the right lower lung most likely represent pneumonia. Diffuse prominence of interstitial markings may represent interstitial fibrosis and/or interstitial edema. Hospital course: H/P on admission 67-year-old woman with a history of COPD was brought by her family because she has increased shortness of breath, not relieved with nebulizer treatment. Grandson at bedside state that she was hospitalized recently for possible pneumonia. She is sleeping a lot at home. Review of systems difficult to obtain. Patient was admitted for the management of COPD exacerbation and RLLP. patient was appropriately treated and resolved. patient was at base line at the time of discharge. Pulmonary consult appreciated. Patient has both CPAP and BIPAP at home advised about adherence of using it. Patient has home O2. Appropriate medication scripts were given at the time of discharge. Disposition: DC-01 TO HOME OR SELFCARE - Discharge Diagnoses (1) COPD exacerbation Status: Acute (2) Leukocytosis Status: Acute (3) Pneumonia Status: Acute Core Measure Documentation - Palliative Care Palliative Care/ Comfort Measures: Not Applicable - Core Measures Any of the following diagnoses?: none Exam - Physical Exam Narrative exam: Patient was on BiPAP The patient appeared well nourished and normally developed. Vital signs as documented. Head exam is unremarkable. No scleral icterus . Neck is without jugular venous distension, thyromegaly, or carotid bruits. Lungs decreased air entry on the bibasilar area, scattered wheezes. Cardiac exam reveals regular rate and Rhythm. Abdominal exam reveals normal bowel sounds. Extremities are nonedematous and both femoral and pedal pulses are normal. BODY TRIMMER: Alert and oriented 3. No focal weakness. - Constitutional Vitals: Temp Pulse Resp BP Pulse Ox 99.6 F 86 18 104/58 97 07/23/18 04:00 07/23/18 08:10 07/23/18 08:10 07/23/18 06:20 07/23/18 09:50 Plan Activity: no restrictions Weight Bearing Status: Full Weight Bearing Diet: low cholesterol Special Instructions: home oxygen via Additional Instructions: Follow up at [facility] in 1-2 weeks if no established PCP. Follow up with: PRIMARY CARE, [Primary Care Provider] - 3-5 Days Prescriptions: Arformoterol Nebu [Brovana Nebu] 15 mcg IH Q12HRT #60 ml Budesonide [Pulmicort Respules] 0.5 mg IH Q12HRT #30 nebu cephALEXin [Keflex] 500 mg PO Q8HR #15 cap Ipratropium/Albuterol Sulfate [DUONEB *Not for PRN Use*] 1 ampul IH Q6HRT #30 ampul.neb Prednisone [predniSONE 10 mg (6-Day Pack, 21 Tabs)] 10 mg PO .TAPER #1 tab.ds.pk
--- NOTE | 2018-07-23 14:16 | Progress Note ---
Assessment and Plan 67 y/o female with copd exacerbation thought secondary to pneumonia. 1. Would drop steroids to q12 frequency, same strength 2. Abx per primary team 3. Continue pulmicort and brovana 4. Would transfer to floor, continue night time bipap therapy. Per IMS on PPV at home, noncompliance vs inadequate therapy, should qualify for trilogy from hospital prior to discharge based upon ABG's during this admission. Subjective Date of service: 07/23/18 Interval history: Stable on 2 liters NC. Did not wear PPV last night. Unsure why. Per IMS, patient has CPAP at home. Objective Vital Signs - 12hr 07/23/18 07/23/18 07/23/18 02:20 02:40 03:00 Temperature Pulse Rate 95 H 89 91 H Pulse Rate [ Anterior Bilateral Throughout] Pulse Rate [ From Monitor] Respiratory 20 22 22 Rate Respiratory Rate [Anterior Bilateral Throughout] Blood Pressure 109/59 109/59 115/63 O2 Sat by Pulse 82 L 89 84 Oximetry 07/23/18 07/23/18 07/23/18 03:20 03:40 04:00 Temperature 99.6 F Pulse Rate 88 86 84 Pulse Rate [ Anterior Bilateral Throughout] Pulse Rate [ 106 H From Monitor] Respiratory 19 20 20 Rate Respiratory Rate [Anterior Bilateral Throughout] Blood Pressure 115/63 115/63 105/53 O2 Sat by Pulse 92 90 93 Oximetry 07/23/18 07/23/18 07/23/18 04:20 04:40 05:00 Temperature Pulse Rate 83 83 87 Pulse Rate [ Anterior Bilateral Throughout] Pulse Rate [ From Monitor] Respiratory 19 20 22 Rate Respiratory Rate [Anterior Bilateral Throughout] Blood Pressure 105/53 105/53 103/58 O2 Sat by Pulse 93 94 94 Oximetry 07/23/18 07/23/18 07/23/18 05:20 05:40 06:00 Temperature Pulse Rate 85 88 85 Pulse Rate [ Anterior Bilateral Throughout] Pulse Rate [ From Monitor] Respiratory 21 27 H 25 H Rate Respiratory Rate [Anterior Bilateral Throughout] Blood Pressure 103/58 103/58 111/57 O2 Sat by Pulse 81 L 83 L 94 Oximetry 07/23/18 07/23/18 07/23/18 06:20 08:00 08:10 Temperature Pulse Rate 85 Pulse Rate [ 85 86 Anterior Bilateral Throughout] Pulse Rate [ From Monitor] Respiratory 23 Rate Respiratory 20 18 Rate [Anterior Bilateral Throughout] Blood Pressure 104/58 O2 Sat by Pulse 95 Oximetry 07/23/18 09:50 Temperature Pulse Rate Pulse Rate [ Anterior Bilateral Throughout] Pulse Rate [ From Monitor] Respiratory Rate Respiratory Rate [Anterior Bilateral Throughout] Blood Pressure O2 Sat by Pulse 97 Oximetry Constitutional: no acute distress, alert Eyes: non-icteric Ascultation: Bilateral: diminished breath sounds, wheezes CBC and BMP: 07/22/18 04:19 07/22/18 16:27 ABG, PT/INR, D-dimer: ABG POC ABG pH 7.350 (7.35-7.45) 07/21/18 07:46 POC ABG pCO2 78.9 (35-45) H 07/21/18 07:46 POC ABG pO2 71 (80-105) L 07/21/18 07:46 POC ABG HCO3 43.6 07/21/18 07:46 POC ABG Total CO2 46 07/21/18 07:46 POC ABG O2 Sat 92 07/21/18 07:46 Abnormal lab findings: Abnormal Labs 07/20/18 07/20/18 07/20/18 20:13 20:13 21:22 WBC 20.7 H Hgb 15.0 H Hct 46.1 H Seg Neuts % (Manual) 74.0 H Lymphocytes % (Manual) 3.0 L Seg Neutrophils # Man 15.3 H Lymphocytes # (Manual) 0.6 L POC ABG pH 7.310 L POC ABG pCO2 95.4 H POC ABG pO2 59 L Sodium Potassium 5.5 H Chloride 87.2 L Carbon Dioxide 38 H BUN 18 H Creatinine < 0.2 L Glucose 115 H Calcium 2.8 L* 07/20/18 07/21/18 07/21/18 22:30 04:23 04:23 WBC 19.2 H Hgb Hct Seg Neuts % (Manual) 86.0 H Lymphocytes % (Manual) 6.0 L Seg Neutrophils # Man 16.5 H Lymphocytes # (Manual) POC ABG pH POC ABG pCO2 82.9 H POC ABG pO2 76 L Sodium Potassium Chloride 89.8 L Carbon Dioxide 40 H BUN 23 H Creatinine 0.4 L D Glucose 118 H Calcium 07/21/18 07/22/18 07/22/18 07:46 04:19 04:19 WBC 11.1 H Hgb Hct Seg Neuts % (Manual) 88.0 H Lymphocytes % (Manual) 3.0 L Seg Neutrophils # Man 9.8 H Lymphocytes # (Manual) 0.3 L POC ABG pH POC ABG pCO2 78.9 H POC ABG pO2 71 L Sodium Potassium Chloride 91.5 L Carbon Dioxide 44 H* BUN 25 H Creatinine 0.4 L Glucose 147 H Calcium 07/22/18 16:27 WBC Hgb Hct Seg Neuts % (Manual) Lymphocytes % (Manual) Seg Neutrophils # Man Lymphocytes # (Manual) POC ABG pH POC ABG pCO2 POC ABG pO2 Sodium 135 L Potassium Chloride 87.5 L Carbon Dioxide 42 H* BUN 19 H Creatinine 0.5 L Glucose 311 H Calcium
--- NOTE | 2018-07-26 16:03 | Query-Infection ---
"Deaallie Rodriguez Date:__07/26/2018 Electrical Assembly Technician/CDS:__Elvira/Kuldeepvarun Phone#:__[phone] Exercise your independent professional judgment when responding to this query. Questions asked do not imply a particular answer is desired or expected. We greatly appreciate your clarification on this issue. Clinical Documentation States: 67-year-old woman with a history of COPD was brought by her family because she has increased shortness of breath, not relieved with nebulizer treatment. Grandson at bedside state that she was hospitalized recently for possible pneumonia. - Discharge Diagnoses (1) COPD exacerbation Status: Acute (2) Leukocytosis Status: Acute (3) Pneumonia Status: Acute Clinical findings show: (please check applicable parameters) WBC (07/20): 20.7 MS (07/20): 112 RR (07/20): 28 Infection, known /suspected, with some of the following indicators; Specify the infection: General parameters [ ] Fever (core temp >38.30C or 100.40F) [ ] Hypothermia (core temp <36C) [X ] Heart rate >90 bpm [X ] Tachypnea: >20 bpm or pCO2 < 32 mmHg [ ] Altered mental status [ ] Significant edema / +ve fluid balance (>20 ml/kg 24 h) [ ] Hyperglycemia (Bl. glucose >110 mg/dl) w/o diabetes Inflammatory parameters [X ] Leukocytosis (white blood cell count >12,000/l) [ ] Leukopenia (white blood cell count <4,000/l) [ ] Bandemia (immature WBC > 10%) [ ] Leucocyte Left Shift [ ] Plasma procalcitonin>2 SD above the normal value Hemodynamic and tissue perfusion parameters [ ] Arterial hypotension(SBP <90 mmHg, MAP <70 mmHg,or a SBP drop >40 mmHg in adults) [ ] Hyperlactatemia (>3 mmol/l) [ ] Anion Gap (> 11mEG/l) [ ] Decreased capillary refill or mottling Organ dysfunction parameters [ ] Arterial hypoxemia (PaO2/FIO2 <300) [ ] Creatinine increase =0.5 mg/dl [ ] Acute oliguria (urine output <0.5 ml | kg |h or 45 mM/l for at least 2 hrs) [ ] Coagulation abnormalities (INR >1.5 or activated partial thromboplastin time >60 s) [ ] Ileus (absent carlton wel sounds) [ ] Thrombocytopenia (platelet count <100,000/l) [ ] Hyperbilirubinemia (plasma total bilirubin >4 mg/dl) According to the clinical indications above, can Bacteremia be further specified? If so, please indicate below and in your Progress Notes and/ or Discharge Summary. Indicate if the condition was present on admission. PHYSICIAN RESPONSE: [x ] Sepsis [ ] Severe Sepsis [ ] Septic Shock [ ] Septicemia [ ] Sepsis now resolved [ ] SIRS due to non-infectious cause with organ dysfunction [ ] SIRS due to non-infectious cause without organ dysfunction [ ] Other: [ ] Comment/Explanation: Present on Admission: [ x] Yes (Y) [ ] Clinically undeterminable (W) [ ] No (N) [ ] Ruled Out Please also document response in your Progress Notes and/or Discharge Summary and indicate if the condition was present on admission Notes: SIRS/ SIRS WITH ORGAN DYSFUNCTION Systemic inflammatory response syndrome (SIRS) generally refers to the systemic response to trauma/gutierrez or other insult such as Acute Myocardial Infarction, Acute Pancreatitis, and Major Surgery with symptoms including fever, tachycardia, tachypnea, and leukocytosis (1). BACTEREMIA Presence of viable bacteria in the circulating blood (2). This term is reserved for patients that do not manifest above SIRS response. SEPTICEMIA Generally refers to a systemic disease associated with the presence of pathological microorganisms or toxins in the blood, which can include bacteria, viruses, fungi or other organisms (1). SEPSIS Generally refers to SIRS due infection (1). SEVERE SEPSIS Generally refers to sepsis associated with acute organ dysfunction (1). SEPTIC SHOCK Generally refers to circulatory failure associated with severe sepsis (2), and defined as hypotension or hypoperfusion despite adequate fluid resuscitation (1 hour) (3). REFERENCES: 1. [employer]/Society of Critical Care Medicine Consensus Conference. Definitions for sepsis and organ failure and guidelines for the use of innovative therapies in sepsis. Critical Care Med 1992;20:864 - 74. 2. Jani ramirez MM, Dolores SANDERS, Randell JAYME, Chris E, Adi D, Justin D, Medina J, Duncan SM, Zachariah JL, Rani G; International Sepsis Definitions Conference. 2001 SCCM/ESICM/ACCP/ATS/SIS International Sepsis Definitions Conference. Intensive Care Med. 2002;29(4):530-8. Epub 2002Oct 12. Review. PubMed PMID:30632756 3. ICD-9-CM Official Guidelines for Coding and Reporting 4. Medscape Drugs, Diseases and Procedures references 5. [employer] Textbook of Internal Medicine. 18th Edition MTDD"
== END 2018-07-23 18:37 | disposition home or self-care (01) | DRG 871 ==
LOC: ED 19:02 → IMCU 23:51
PROVIDERS: ADMIT Internal Medicine; ATTEND Internal Medicine
PROC: 4A033R1 Measurement of Arterial Saturation, Peripheral, Percutaneous Approach (ICD-10-PCS; principal; 2018-07-20)
PROC: 5A09357 Assistance with Respiratory Ventilation, Less than 24 Consecutive Hours, Continuous Positive Airway Pressure (ICD-10-PCS; 2018-07-20)
PROC: 5A09357 Assistance with Respiratory Ventilation, Less than 24 Consecutive Hours, Continuous Positive Airway Pressure (ICD-10-PCS; 2018-07-21)
DX: A41.9 Sepsis, unspecified organism (principal); J18.1 Lobar pneumonia, unspecified organism; J96.20 Acute and chronic respiratory failure, unspecified whether with hypoxia or hypercapnia; J44.1 Chronic obstructive pulmonary disease with (acute) exacerbation; J44.0 Chronic obstructive pulmonary disease with (acute) lower respiratory infection; F17.210 Nicotine dependence, cigarettes, uncomplicated; Z82.49 Family history of ischemic heart disease and other diseases of the circulatory system; Z99.81 Dependence on supplemental oxygen; R00.0 Tachycardia, unspecified
CPT/HCPCS: 36415; 36600; 71045; 80048; 82140; 82803; 85007; 85025; 87040; 87400; 93005; 93010; 94640; 94644; 94660; 94760; 96365; 96368; G0378; J0692; J1650; J2405; J2543; J2930; J3370; J3475; J7040

== ENCOUNTER 2018-08-04 21:11 | Emergency (ER) | payer MEDICARE ==
[2018-08-04] MEDS ORDERED: PERCOCET 5/325 PO ONE (22:04)
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
[2018-08-04] MEDS ORDERED: PROVENTIL IH ONE (23:12)
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
[2018-08-04] MEDS ORDERED: DELTASONE PO ONE (23:45)
[2018-08-05 00:56] VITALS: BP 109/76
== END 2018-08-05 01:30 | disposition home or self-care (01) ==
LOC: ED 21:11
DX: J44.1 Chronic obstructive pulmonary disease with (acute) exacerbation (principal); I50.9 Heart failure, unspecified; Z90.710 Acquired absence of both cervix and uterus; Z87.891 Personal history of nicotine dependence; Z88.0 Allergy status to penicillin; Z91.013 Allergy to seafood
CPT/HCPCS: 70450; 71046; 93005; 93010; 94640; 99284; J7512